=== PATIENT | female | born 1965 | race Caucasian/White ===

== ENCOUNTER 2024-03-20 11:15 | Outpatient (CLI) | payer OTHER | END 2024-03-20 11:16 | disposition home or self-care (01) | LOC: CSHMAMMO 11:15 | PROVIDERS: ATTEND Nurse Practitioner Family | DX: Z12.31 Encounter for screening mammogram for malignant neoplasm of breast (principal); Z85.3 Personal history of malignant neoplasm of breast; Z98.890 Other specified postprocedural states | CPT/HCPCS: 77063; 77067 ==